=== PATIENT | male | born 1950 | race Two or more races ===

== ENCOUNTER 2023-04-08 19:14 | Inpatient (IN) | payer MEDICARE, OTHER ==
[~2023-04-08] VITALS: Ht 175.3 cm; Wt 54.6 kg
[2023-04-08] MEDS ORDERED: ACETAMINOPHEN 325 MG TABLET PO ONE (19:30)
[2023-04-08] MEDS ORDERED: ACETAMINOPHEN ES 500 MG TABLET ONE (19:55)
[2023-04-08 20:32] LABS: BASOPHILS # (AUTO) 0.1 K/uL (0.0-0.2); BASOPHILS % (AUTO) 0.6 % (0.0-2.0); EOSINOPHILS # (AUTO) 0.1 K/uL (0.0-0.7); HEMATOCRIT 42 % (39-51); HEMOGLOBIN 14.2 g/dL (13.5-17.5); LYMPHOCYTES # (AUTO) 0.7 K/uL (0.8-4.8); LYMPHOCYTES % (AUTO) 8.1 % (20.0-44.0); MEAN CORPUSCULAR HEMOGLOBIN 30 PG (26.0-33.0); MEAN CORPUSCULAR HGB CONC 34 g/dl (31.0-36.0); MEAN CORPUSCULAR VOLUME 88 fL (80-96); MONOCYTES # (AUTO) 0.4 K/uL (0.1-1.30); MONOCYTES % (AUTO) 5.1 % (2.0-12.0); NEUTROPHILS # (AUTO) 7.6 K/uL (1.8-8.9); NEUTROPHILS % (AUTO) 85.2 % (43.0-81.0); PLATELET COUNT (AUTO) 245 K/uL (150-450); RED BLOOD CELL COUNT(AUTO) 4.75 MIL/uL (4.5-6.0); WHITE BLOOD COUNT (AUTO) 8.9 K/uL (4.3-11.0)
[2023-04-08 20:38] LABS: INR 1.04 (0.91-1.10); PARTIAL THROMBOPLASTIN TIME 27.1 SEC (24.3-34.3); PROTHROMBIN TIME 10.9 SECS (9.2-11.1)
[2023-04-08 21:23] LABS: CARBON DIOXIDE 24 mmol/L (21-32); CHLORIDE 104 mmol/L (98-107); CREATININE 0.9 mg/dL (0.6-1.3); GLUCOSE 113 mg/dL (74-106); POTASSIUM 4.2 mmol/L (3.5-5.1); SODIUM SERUM 139 mmol/L (136-145); UREA NITROGEN, BLOOD 15 mg/dL (7-18)
[2023-04-08] MEDS ORDERED: ONDANSETRON HCL/PF 4 MG/2 ML VIAL IVP PRN (23:30)
[2023-04-08] MEDS ORDERED: ACETAMINOPHEN 650 MG/SUPP.RECT RC PRN (23:30)
[2023-04-08] MEDS: IV D5/0.45 NACL 1,000 ML IV PRN (23:47)
[2023-04-09] MEDS: MORPHINE SULFATE INJ 2 MG/ML DISP.SYRIN IV PRN ×3 (00:01→16:47)
[2023-04-09 05:53] LABS: BASOPHILS % (AUTO) 0.2 % (0.0-2.0); EOSINOPHILS % (AUTO) 0.2 % (0.0-6.0); HEMATOCRIT 42 % (39-51); HEMOGLOBIN 14.4 g/dL (13.5-17.5); LYMPHOCYTES # (AUTO) 0.4 K/uL (0.8-4.8); LYMPHOCYTES % (AUTO) 2.7 % (20.0-44.0); MEAN CORPUSCULAR HEMOGLOBIN 30 PG (26.0-33.0); MEAN CORPUSCULAR HGB CONC 34 g/dl (31.0-36.0); MEAN CORPUSCULAR VOLUME 87 fL (80-96); MONOCYTES # (AUTO) 0.7 K/uL (0.1-1.30); MONOCYTES % (AUTO) 4.4 % (2.0-12.0); NEUTROPHILS # (AUTO) 15.5 K/uL (1.8-8.9); NEUTROPHILS % (AUTO) 92.5 % (43.0-81.0); PLATELET COUNT (AUTO) 222 K/uL (150-450); RED BLOOD CELL COUNT(AUTO) 4.77 MIL/uL (4.5-6.0); RED CELL DISTRIBUTION WIDTH 12.9 % (11.5-15.0); WHITE BLOOD COUNT (AUTO) 16.7 K/uL (4.3-11.0)
[2023-04-09 06:16] LABS: ALANINE AMINOTRANSFERASE 22 U/L (12-78); ALBUMIN 3.7 g/dL (3.4-5.0); ALKALINE PHOSPHATASE 68 U/L (46-116); ASPARTATE AMINOTRANSFERASE 22 U/L (15-37); BILIRUBIN,TOTAL 0.9 mg/dL (0.2-1.0); CALCIUM, SERUM 8.5 mg/dL (8.5-10.1); CARBON DIOXIDE 23 mmol/L (21-32); CHLORIDE 102 mmol/L (98-107); CREATININE 0.7 mg/dL (0.6-1.3); GLUCOSE 122 mg/dL (74-106); MAGNESIUM 2.2 mg/dL (1.8-2.4); PHOSPHORUS 2.6 mg/dL (2.5-4.9); POTASSIUM 3.7 mmol/L (3.5-5.1); SODIUM SERUM 136 mmol/L (136-145); TOTAL PROTEIN, SERUM 6.7 g/dL (6.4-8.2); UREA NITROGEN, BLOOD 12 mg/dL (7-18)
[2023-04-09 08:00] VITALS: BP 155/122; TEMP 97.7; O2SAT 91
[2023-04-09] MEDS: PANTOPRAZOLE 40 MG VIAL IV SCH (08:23)
[2023-04-09] MEDS ORDERED: TRAZ-257 PO (11:50)
[2023-04-09] MEDS ORDERED: QUET50TA PO (11:50)
[2023-04-09] MEDS ORDERED: QUET25TA PO (11:50)
[2023-04-09] MEDS ORDERED: PETR113O TP (11:50)
[2023-04-09] MEDS ORDERED: MENT3.5O TP (11:50)
[2023-04-09] MEDS ORDERED: AMLO-213 PO (11:50)
[2023-04-09] MEDS ORDERED: GLYC2TAB21 PO (11:50)
[2023-04-09] MEDS ORDERED: LACT-246 PO (11:50)
[2023-04-09] MEDS: Z GUARD REMEDY 4 OZ OINT TP SCH (12:55)
[2023-04-09 16:00] VITALS: BP 153/84; TEMP 99.1; O2SAT 94
[2023-04-09] MEDS: AZITHROMYCIN 250 MG TABLET PO SCH ×2 (17:00→17:30)
[2023-04-09] MEDS: CEFTRIAXONE 1 G in IV D5W 50 ML IV SCH (17:45)
[2023-04-09 20:00] VITALS: BP 153/91; TEMP 98.2; O2SAT 92; O2SAT 97
[2023-04-09] MEDS: NITROGLYCERIN 30 GM TUBE TP SCH (21:10)
[2023-04-09] MEDS: Z GUARD REMEDY 4 OZ OINT TP PRN (21:11)
[2023-04-09] MEDS: IV D5/0.45 NACL 1,000 ML IV PRN (22:14)
[2023-04-10] MEDS: MORPHINE SULFATE INJ 2 MG/ML DISP.SYRIN IV PRN (05:40)
[2023-04-10 06:02] LABS: APPEARANCE,URINE CLEAR (CLEAR); BILIRUBIN,URINE NEGATIVE (NEGATIVE); BLOOD, URINE TRACE-INTA Ery/uL (NEGATIVE); COLOR,URINE YELLOW (YELLOW); KETONES,URINE NEGATIVE (NEGATIVE); LEUKOCYTE ESTERASE ,URINE NEGATIVE (NEGATIVE); NITRITE, URINE NEGATIVE (NEGATIVE); PROTEIN,URINE 1+ mg/dl (NEGATIVE); UGLUCOSE TRACE mg/dL (NEGATIVE)
[2023-04-10 07:33] LABS: BASOPHILS % (AUTO) 0.1 % (0.0-2.0); EOSINOPHILS % (AUTO) 0.1 % (0.0-6.0); HEMATOCRIT 42 % (39-51); HEMOGLOBIN 14.3 g/dL (13.5-17.5); LYMPHOCYTES # (AUTO) 0.3 K/uL (0.8-4.8); LYMPHOCYTES % (AUTO) 1.9 % (20.0-44.0); MEAN CORPUSCULAR HEMOGLOBIN 30 PG (26.0-33.0); MEAN CORPUSCULAR HGB CONC 34 g/dl (31.0-36.0); MEAN CORPUSCULAR VOLUME 87 fL (80-96); MONOCYTES # (AUTO) 0.8 K/uL (0.1-1.30); MONOCYTES % (AUTO) 4.3 % (2.0-12.0); NEUTROPHILS # (AUTO) 16.4 K/uL (1.8-8.9); NEUTROPHILS % (AUTO) 93.6 % (43.0-81.0); PLATELET COUNT (AUTO) 236 K/uL (150-450); RED BLOOD CELL COUNT(AUTO) 4.82 MIL/uL (4.5-6.0); RED CELL DISTRIBUTION WIDTH 12.8 % (11.5-15.0); WHITE BLOOD COUNT (AUTO) 17.5 K/uL (4.3-11.0)
[2023-04-10 08:00] VITALS: BP 155/93; TEMP 98.6; O2SAT 92
[2023-04-10 08:01] LABS: CALCIUM, SERUM 8.8 mg/dL (8.5-10.1); CARBON DIOXIDE 26 mmol/L (21-32); CHLORIDE 102 mmol/L (98-107); CREATININE 0.7 mg/dL (0.6-1.3); GLUCOSE 99 mg/dL (74-106); POTASSIUM 3.7 mmol/L (3.5-5.1); SODIUM SERUM 136 mmol/L (136-145); UREA NITROGEN, BLOOD 15 mg/dL (7-18)
[2023-04-10] MEDS: PANTOPRAZOLE 40 MG VIAL IV SCH (08:59)
[2023-04-10] MEDS: NITROGLYCERIN 30 GM TUBE TP SCH ×2 (10:07→21:22)
[2023-04-10] MEDS: Z GUARD REMEDY 4 OZ OINT TP SCH (10:36)
[2023-04-10] MEDS: IV D5/0.45 NACL 1,000 ML IV PRN (11:45)
[2023-04-10] MEDS ORDERED: BUPIVACAINE 0.25% 75 MG/30 ML VIAL ONE (12:16)
[2023-04-10] MEDS ORDERED: POLYMYXIN B SULFATE 500,000 UNITS ONE (12:16)
[2023-04-10] MEDS ORDERED: ANESTHESIA TRAY IN PYXIS 1 EA TRAY MC ONE (12:21)
[2023-04-10] MEDS ORDERED: ROCURONIUM BROMIDE 50 MG/5 ML ONE (12:34)
[2023-04-10] MEDS ORDERED: FAMOTIDINE/PF INJ 20 MG/2 ML VIAL IV ONE (12:34)
[2023-04-10] MEDS ORDERED: ROPIVACAINE HCL 0.5% 5 MG/ML 30ML VIAL ONE (12:34)
[2023-04-10] MEDS ORDERED: TRANEXAMIC ACID 1,000 MG/10 ML VIAL ONE (12:34)
[2023-04-10] MEDS ORDERED: FENTANYL PF 100MCG/2ML AMPUL ONE (12:34)
[2023-04-10 15:52] LABS: HEMOGLOBIN 13.7 g/dL (13.5-17.5)
[2023-04-10 16:00] VITALS: BP 153/82; TEMP 97.5; O2SAT 93
[2023-04-10] MEDS ORDERED: ACETAMINOPHEN 325 MG TABLET PO PRN (16:00)
[2023-04-10] MEDS ORDERED: HYDROCODONE/APAP 5/325MG TABLET PO PRN ×2 (16:00)
[2023-04-10] MEDS ORDERED: DOCUSATE SODIUM 100 MG CAPSULE PO PRN (16:00)
[2023-04-10] MEDS ORDERED: SENNOSIDES 8.6 MG TABLET PO PRN ×2 (16:00)
[2023-04-10] MEDS ORDERED: DOCUSATE SODIUM 250 MG CAPSULE PO PRN (16:00)
[2023-04-10] MEDS ORDERED: BISACODYL SUPP (10 MG) 10 MG/SUPP.RECT SUPP.RECT RC PRN (16:00)
[2023-04-10] MEDS: CEFTRIAXONE 1 G in IV D5W 50 ML IV SCH (16:23)
[2023-04-10] MEDS: AZITHROMYCIN 250 MG TABLET PO SCH (17:47)
[2023-04-10 20:00] VITALS: BP 150/95; TEMP 99.3; O2SAT 94
[2023-04-10] MEDS: ANCEF 1 GM/50 ML D5W IV SCH ×2 (21:22)
[2023-04-10] MEDS: ENOXAPARIN SODIUM 40 MG/0.4 ML DISP.SYRIN SQ SCH (21:23)
[2023-04-10 23:18] VITALS: BP 150/95; TEMP 99.3; O2SAT 94
[2023-04-11] MEDS: MORPHINE SULFATE INJ 4 MG/ML DISP.SYRIN IV PRN (01:42)
[2023-04-11] MEDS: ANCEF 1 GM/50 ML D5W IV SCH ×2 (06:01)
[2023-04-11 06:19] LABS: BASOPHILS % (AUTO) 0.1 % (0.0-2.0); HEMATOCRIT 37 % (39-51); HEMOGLOBIN 12.7 g/dL (13.5-17.5); LYMPHOCYTES # (AUTO) 0.5 K/uL (0.8-4.8); LYMPHOCYTES % (AUTO) 3.2 % (20.0-44.0); MEAN CORPUSCULAR HEMOGLOBIN 30 PG (26.0-33.0); MEAN CORPUSCULAR HGB CONC 34 g/dl (31.0-36.0); MEAN CORPUSCULAR VOLUME 88 fL (80-96); MONOCYTES % (AUTO) 6.2 % (2.0-12.0); NEUTROPHILS # (AUTO) 14.4 K/uL (1.8-8.9); NEUTROPHILS % (AUTO) 90.5 % (43.0-81.0); PLATELET COUNT (AUTO) 213 K/uL (150-450); RED BLOOD CELL COUNT(AUTO) 4.24 MIL/uL (4.5-6.0); WHITE BLOOD COUNT (AUTO) 15.9 K/uL (4.3-11.0)
[2023-04-11] MEDS: IV D5/0.45 NACL 1,000 ML IV PRN ×2 (06:26→17:23)
[2023-04-11 06:54] LABS: CALCIUM, SERUM 8.2 mg/dL (8.5-10.1); CARBON DIOXIDE 25 mmol/L (21-32); CHLORIDE 105 mmol/L (98-107); CREATININE 0.7 mg/dL (0.6-1.3); GLUCOSE 92 mg/dL (74-106); POTASSIUM 3.4 mmol/L (3.5-5.1); SODIUM SERUM 138 mmol/L (136-145); UREA NITROGEN, BLOOD 11 mg/dL (7-18)
[2023-04-11 08:00] VITALS: BP 150/92; TEMP 99; O2SAT 96
[2023-04-11] MEDS ORDERED: POTASSIUM CHLORIDE 20 MEQ TAB.PRT.SR PO ONE (08:30)
[2023-04-11] MEDS: PANTOPRAZOLE 40 MG TABLET.DR PO SCH (08:49)
[2023-04-11] MEDS: NITROGLYCERIN 30 GM TUBE TP SCH ×2 (09:07→20:53)
[2023-04-11] MEDS: Z GUARD REMEDY 4 OZ OINT TP PRN (10:00)
[2023-04-11] MEDS: Z GUARD REMEDY 4 OZ OINT TP SCH (10:01)
[2023-04-11 16:00] VITALS: BP 146/87; TEMP 98; O2SAT 98
[2023-04-11] MEDS: AZITHROMYCIN 250 MG TABLET PO SCH (16:49)
[2023-04-11] MEDS: CEFTRIAXONE 1 G in IV D5W 50 ML IV SCH (16:50)
[2023-04-11 20:00] VITALS: BP 127/68; TEMP 99; O2SAT 96
[2023-04-11] MEDS: ENOXAPARIN SODIUM 40 MG/0.4 ML DISP.SYRIN SQ SCH (20:54)
[2023-04-12] MEDS: MORPHINE SULFATE INJ 4 MG/ML DISP.SYRIN IV PRN (01:41)
[2023-04-12 01:42] VITALS: BP 151/88; TEMP 98.4; O2SAT 100
[2023-04-12] MEDS ORDERED: POTASSIUM CHLORIDE 20 MEQ TAB.PRT.SR PO ONE (07:30)
[2023-04-12] MEDS: PANTOPRAZOLE 40 MG TABLET.DR PO SCH (08:17)
[2023-04-12 08:31] VITALS: BP 142/87
[2023-04-12] MEDS: NITROGLYCERIN 30 GM TUBE TP SCH (08:31)
[2023-04-12] MEDS: Z GUARD REMEDY 4 OZ OINT TP SCH (08:32)
[2023-04-12 09:19] LABS: BASOPHILS % (AUTO) 0.1 % (0.0-2.0); EOSINOPHILS # (AUTO) 0.2 K/uL (0.0-0.7); EOSINOPHILS % (AUTO) 1.4 % (0.0-6.0); HEMATOCRIT 34 % (39-51); HEMOGLOBIN 11.5 g/dL (13.5-17.5); LYMPHOCYTES # (AUTO) 0.7 K/uL (0.8-4.8); LYMPHOCYTES % (AUTO) 6.4 % (20.0-44.0); MEAN CORPUSCULAR HEMOGLOBIN 30 PG (26.0-33.0); MEAN CORPUSCULAR HGB CONC 34 g/dl (31.0-36.0); MEAN CORPUSCULAR VOLUME 89 fL (80-96); MONOCYTES % (AUTO) 8.6 % (2.0-12.0); NEUTROPHILS # (AUTO) 9.3 K/uL (1.8-8.9); NEUTROPHILS % (AUTO) 83.5 % (43.0-81.0); PLATELET COUNT (AUTO) 208 K/uL (150-450); RED BLOOD CELL COUNT(AUTO) 3.81 MIL/uL (4.5-6.0); RED CELL DISTRIBUTION WIDTH 12.7 % (11.5-15.0); WHITE BLOOD COUNT (AUTO) 11.1 K/uL (4.3-11.0)
[2023-04-12 09:35] LABS: CALCIUM, SERUM 8.2 mg/dL (8.5-10.1); CREATININE 0.7 mg/dL (0.6-1.3); POTASSIUM 3.3 mmol/L (3.5-5.1)
[2023-04-12] MEDS: IV D5/0.45 NACL 1,000 ML IV PRN (09:44)
[2023-04-12] MEDS ORDERED: SENN-175 PO (10:28)
[2023-04-12] MEDS ORDERED: ENOX40DI SQ (10:28)
[2023-04-12] MEDS ORDERED: Hydrocodone/Apap 5/325MG PO (10:28)
[2023-04-12] MEDS: AZITHROMYCIN 250 MG TABLET PO SCH (16:03)
[2023-04-12] MEDS: CEFTRIAXONE 1 G in IV D5W 50 ML IV SCH (16:03)
== END 2023-04-12 20:54 | DRG 521 ==
LOC: ER 19:16 → MED 21:56
PROVIDERS: ADMIT Internal Medicine; ATTEND Internal Medicine
PROC: 0SRR0JZ Replacement of Right Hip Joint, Femoral Surface with Synthetic Substitute, Open Approach (ICD-10-PCS; principal; 2023-04-10)
DX: S72.011A Unspecified intracapsular fracture of right femur, initial encounter for closed fracture (principal); E43 Unspecified severe protein-calorie malnutrition; G93.41 Metabolic encephalopathy; J15.9 Unspecified bacterial pneumonia; R64 Cachexia; D68.69 Other thrombophilia; Z68.1 Body mass index [BMI] 19.9 or less, adult; W19.XXXA Unspecified fall, initial encounter; I25.10 Atherosclerotic heart disease of native coronary artery without angina pectoris; R62.7 Adult failure to thrive; E78.5 Hyperlipidemia, unspecified; I10 Essential (primary) hypertension; Z20.822 Contact with and (suspected) exposure to COVID-19; Y93.9 Activity, unspecified; Y92.89 Other specified places as the place of occurrence of the external cause; Z74.09 Other reduced mobility; F03.90 Unspecified dementia, unspecified severity, without behavioral disturbance, psychotic disturbance, mood disturbance, and anxiety
CPT/HCPCS: 36415; 71045-TC; 72192-TC; 73502; 80048-TC; 80053-TC; 83735-TC; 84100-TC; 84484-TC; 85025-TC; 85027-TC; 85610-TC; 85730-TC; 86850-TC; 87081-TC; 87086-TC; 93307-TC; 97110-TC; 97530-TC; A4217; A4223; A4349; A6209; C1776; C9113; G0378; J0690; J0696; J1100; J1650; J2270; J2370; J2405; J2704; J2795; J3010; J3490; J7030; J7040; J7060

== ENCOUNTER 2023-04-22 09:18 | Inpatient (IN) | payer MEDICARE, OTHER ==
[~2023-04-22] VITALS: Ht 170.2 cm; Wt 55.3 kg
[2023-04-22] VITALS (26 sets, daily range): BP systolic 57–153; BP diastolic 41–93; TEMP 98.4–99.6; O2SAT 64–95
[~2023-04-22 09:18] MED LIST: AMLO-213 PO; ENOX40DI SQ; GLYC2TAB21 PO; Hydrocodone/Apap 5/325MG PO; LACT-246 PO; MENT3.5O TP; PETR113O TP; QUET25TA PO; QUET50TA PO; SENN-175 PO; TRAZ-257 PO
[2023-04-22] MEDS ORDERED: AZITHROMYCIN 500 MG in IV D5W 250 ML IV ONE (09:30)
[2023-04-22] MEDS ORDERED: VANCOMYCIN 1 GM in IV D5W 250 ML IV ONE (09:30)
[2023-04-22] MEDS ORDERED: IV NS 0.9% 1,000 ML BAG IV ONE (09:30)
[2023-04-22] MEDS ORDERED: MAGN400O6 PO (09:52)
[2023-04-22] MEDS ORDERED: ENOX40DI SQ (09:52)
[2023-04-22] MEDS ORDERED: HYDR-4303 PO (09:52)
[2023-04-22] MEDS ORDERED: ACET-2605 PO (09:52)
[2023-04-22] MEDS ORDERED: DOCU-141 PO (09:52)
[2023-04-22] MEDS ORDERED: NA P133E RC (09:52)
[2023-04-22] MEDS ORDERED: ACET-868 PO (09:52)
[2023-04-22] MEDS ORDERED: BISA10SU11 RC (09:52)
[2023-04-22] MEDS ORDERED: SENN-261 PO (09:52)
[2023-04-22] MEDS: PIPERACILLIN /TAZOBACTAM 3.375 G in IV D5W 50 ML IV ONE ×2 (10:00→10:35)
[2023-04-22 10:12] LABS: ABG BASE EXCESS -0.4 mmol/L; ABG OXYGEN SATURATION 85.8 % (92.0-98.5); ABG PCO2 34.4 mmHg (35.0-45.0); ABG PH 7.444 (7.350-7.450); ABG PO2 51.8 mmHg (75.0-100.0); COHb 0.2 % (0.5-1.5); MetHb 0.2 % (0.0-1.5); O2Hb 85.5 % (94.0-97.0); SITE, ABG Right Radial; VENT MODE, BG HFNC 40L/100% +15LPM NRB
[2023-04-22 10:31] LABS: BASOPHILS % (AUTO) 0.2 % (0.0-2.0); HEMATOCRIT 46 % (39-51); HEMOGLOBIN 14.7 g/dL (13.5-17.5); LYMPHOCYTES # (AUTO) 0.3 K/uL (0.8-4.8); MEAN CORPUSCULAR HEMOGLOBIN 29 PG (26.0-33.0); MEAN CORPUSCULAR HGB CONC 32 g/dl (31.0-36.0); MEAN CORPUSCULAR VOLUME 90 fL (80-96); MONOCYTES # (AUTO) 0.4 K/uL (0.1-1.30); MONOCYTES % (AUTO) 2.8 % (2.0-12.0); NEUTROPHILS # (AUTO) 12.4 K/uL (1.8-8.9); PLATELET COUNT (AUTO) 466 K/uL (150-450); RED BLOOD CELL COUNT(AUTO) 5.04 MIL/uL (4.5-6.0); RED CELL DISTRIBUTION WIDTH 13.8 % (11.5-15.0); WHITE BLOOD COUNT (AUTO) 13.1 K/uL (4.3-11.0)
[2023-04-22 10:47] LABS: ALANINE AMINOTRANSFERASE 43 U/L (12-78); ALBUMIN 1.9 g/dL (3.4-5.0); ALKALINE PHOSPHATASE 104 U/L (46-116); ASPARTATE AMINOTRANSFERASE 39 U/L (15-37); BILIRUBIN,DIRECT 0.6 mg/dL (0.0-0.2); CALCIUM, SERUM 9.4 mg/dL (8.5-10.1); CARBON DIOXIDE 24 mmol/L (21-32); CHLORIDE 114 mmol/L (98-107); CREATININE 3.4 mg/dL (0.6-1.3); GLUCOSE 120 mg/dL (74-106); POTASSIUM 4.7 mmol/L (3.5-5.1); SODIUM SERUM 153 mmol/L (136-145); TOTAL PROTEIN, SERUM 7.4 g/dL (6.4-8.2)
[2023-04-22 11:00] LABS: UREA NITROGEN, BLOOD 124 mg/dL (7-18)
[2023-04-22 11:05] LABS: LACTIC ACID 3.7 mmol/L (0.4-2.0)
[2023-04-22 11:06] LABS: INR 1.17 (0.91-1.10); PARTIAL THROMBOPLASTIN TIME 25.1 SEC (24.3-34.3); PROTHROMBIN TIME 12.3 SECS (9.2-11.1)
[2023-04-22] MEDS ORDERED: ACETAMINOPHEN 650 MG/SUPP.RECT RC ONE ×2 (11:55→12:00)
[2023-04-22 12:34] LABS: APPEARANCE,URINE SLIGHTLY CLOUDY (CLEAR); BILIRUBIN,URINE 1+ (NEGATIVE); BLOOD, URINE 1+ Ery/uL (NEGATIVE); COLOR,URINE ORANGE (YELLOW); KETONES,URINE TRACE mg/dL (NEGATIVE); LEUKOCYTE ESTERASE ,URINE NEGATIVE (NEGATIVE); NITRITE, URINE NEGATIVE (NEGATIVE); PROTEIN,URINE TRACE mg/dl (NEGATIVE); UGLUCOSE NEGATIVE (NEGATIVE)
[2023-04-22] MEDS ORDERED: ONDANSETRON HCL/PF 4 MG/2 ML VIAL IVP PRN (13:00)
[2023-04-22] MEDS ORDERED: PANTOPRAZOLE 40 MG VIAL IV SCH (13:00)
[2023-04-22] MEDS ORDERED: ACETAMINOPHEN 650 MG/SUPP.RECT RC PRN (13:00)
[2023-04-22] MEDS ORDERED: ALBUTEROL FS 2.5 MG/3 ML VIAL.NEB NEB PRN (13:00)
[2023-04-22] MEDS ORDERED: Z GUARD REMEDY 4 OZ OINT TP PRN (13:00)
[2023-04-22] MEDS ORDERED: MORPHINE SULFATE INJ 2 MG/ML DISP.SYRIN IV PRN (13:00)
[2023-04-22] MEDS ORDERED: IV D5W 1,000 ML IV PRN (13:00)
[2023-04-22] MEDS ORDERED: NOREPINEPHRINE 8 MG in IV NS 0.9% 242 ML IV PRN (13:00)
[2023-04-22 13:06] LABS: ADD URINE CULTURE NO; BACTERIA,URINE Rare /HPF (None Seen); SQUAMOUS EPITHELIAL CELL,UR Few /HPF (None Seen); URINE AMORPHOUS URATE Many /HPF (None Seen); WBC,URINE 0-2 /HPF (0-3)
[2023-04-22] MEDS ORDERED: IV D5/0.45 NACL 1,000 ML IV PRN (15:00)
[2023-04-22] MEDS ORDERED: CEFEPIME 1 GM in IV D5W 50 ML IV SCH (15:00)
[2023-04-22] MEDS ORDERED: PROPOFOL 200 MG/20 ML VIAL IV ONE (16:00)
[2023-04-22] MEDS ORDERED: IV NS 0.9% 500 ML IV ONE (16:00)
[2023-04-22] MEDS ORDERED: PROPOFOL 100 ML IV PRN (16:00)
[2023-04-22 16:18] LABS: ABG BASE EXCESS -8.5 mmol/L; ABG OXYGEN SATURATION 76.3 % (92.0-98.5); ABG PCO2 55.2 mmHg (35.0-45.0); ABG PH 7.184 (7.350-7.450); ABG PO2 52.8 mmHg (75.0-100.0); ABG TOTAL HEMOGLOBIN 14.6 G/dL (13.5-18.0); COHb 0.2 % (0.5-1.5); MetHb 0.2 % (0.0-1.5); SITE, ABG Right Radial
[2023-04-22] MEDS ORDERED: PHENYLEPHRINE 100 MG in IV NS 0.9% 240 ML IV PRN (16:30)
[2023-04-22] MEDS ORDERED: CALCIUM CHLORIDE 1,000 MG/10 ML DISP.SYRIN IV ONE (20:52)
[2023-04-22] MEDS ORDERED: SODIUM BICARBONATE SYR 50 MEQ/50 ML DISP.SYRIN IV ONE (20:52)
[2023-04-22] MEDS ORDERED: EPINEPHRINE (1:10,000) SYRINGE 1 MG/10 ML DISP.SYRIN IVP ONE (20:52)
[2023-04-22] MEDS ORDERED: HEPARIN SODIUM, PORCINE 5000 UNITS/1 ML VIAL SQ SCH (21:00)
[2023-04-23] MEDS ORDERED: VANCOMYCIN 500 MG in IV D5W 100ml IV SCH (09:00)
[2023-04-23] MEDS ORDERED: VANCOMYCIN 0.75 GM in IV D5W 250 ML IV SCH (09:00)
== END 2023-04-22 21:30 | DRG 871 ==
LOC: ER 09:23 → ICU 12:33
PROVIDERS: ADMIT Nurse Practitioner Acute Care; ATTEND Nurse Practitioner Acute Care
PROC: 5A1935Z Respiratory Ventilation, Less than 24 Consecutive Hours (ICD-10-PCS; principal; 2023-04-22)
PROC: 0BH18EZ Insertion of Endotracheal Airway into Trachea, Via Natural or Artificial Opening Endoscopic (ICD-10-PCS; 2023-04-22)
DX: A41.9 Sepsis, unspecified organism (principal); E43 Unspecified severe protein-calorie malnutrition; G92.8 Other toxic encephalopathy; J96.01 Acute respiratory failure with hypoxia; N17.0 Acute kidney failure with tubular necrosis; R65.21 Severe sepsis with septic shock; J15.6 Pneumonia due to other Gram-negative bacteria; J15.9 Unspecified bacterial pneumonia; E87.20 Acidosis, unspecified; R64 Cachexia; E87.0 Hyperosmolality and hypernatremia; Z68.1 Body mass index [BMI] 19.9 or less, adult; E78.5 Hyperlipidemia, unspecified; E86.0 Dehydration; I25.10 Atherosclerotic heart disease of native coronary artery without angina pectoris; Z20.822 Contact with and (suspected) exposure to COVID-19; M81.0 Age-related osteoporosis without current pathological fracture; Z96.641 Presence of right artificial hip joint; I49.9 Cardiac arrhythmia, unspecified; I11.0 Hypertensive heart disease with heart failure; I50.9 Heart failure, unspecified; G30.9 Alzheimer's disease, unspecified; F02.80 Dementia in other diseases classified elsewhere, unspecified severity, without behavioral disturbance, psychotic disturbance, mood disturbance, and anxiety
CPT/HCPCS: 36415; 36600; 71045-TC; 76770-TC; 80048-TC; 80076-TC; 81001; 82803-TC; 82962-TC; 83605-TC; 84484-TC; 85025-TC; 85730-TC; 87040-TC; 87081-TC; 87086-TC; 94002-TC; 94799-TC; A4223; A4623; C9113; G0378; J0171; J0456; J0692; J2370; J2543; J2704; J3370; J3490; J7030; J7040; J7050; J7060; J7070